=== PATIENT | male | born 1945 | race Hispanic/Latino ===

== ENCOUNTER 2017-12-15 13:35 | Inpatient (IN) | payer MEDICARE ==
[2017-12-15] VITALS: BP 68/41
[~2017-12-15] VITALS: Ht 182.9 cm; Wt 65.1 kg
[~2017-12-15 13:35] MED LIST: CARV6.25 PO; LEVO175T9 PO; LISI-613 PO; TRAM50TA4 PO; TYL3 PO
[2017-12-15 14:06] LABS: BASOPHILS % (AUTO) 0.1 % (0.0-5.0); EOSINOPHILS % (AUTO) 0.1 % (0.0-8.0); HEMATOCRIT 33.4 % (42-54); LYMPHOCYTES % (AUTO) 2.5 % (21.0-51.0); MEAN CORPUSCULAR HEMOGLOBIN 29.4 pg (27.0-33.0); MEAN CORPUSCULAR HGB CONC 33.3 g/dL (32.0-36.0); MEAN CORPUSCULAR VOLUME 88.2 fL (79-99); MONOCYTES % (AUTO) 2.8 % (3.0-13.0); NEUTROPHILS % (AUTO) 94.5 % (40.0-77.0); PLATELET COUNT (AUTO) 294 K/uL (130-400); RED BLOOD CELL COUNT(AUTO) 3.79 MIL/uL (4.50-6.20); RED CELL DISTRIBUTION WIDTH 16.9 % (11.0-15.5); WHITE BLOOD COUNT (AUTO) 16.4 K/uL (4.8-10.8)
[2017-12-15 14:15] LABS: INR 0.97 (0.85-1.15); PARTIAL THROMBOPLASTIN TIME 32.6 SEC (26.3-35.5); PROTHROMBIN TIME 10.2 SEC (9.6-11.6)
[2017-12-15 14:24] LABS: CREATININE 1.2 mg/dL (0.5-1.5); POTASSIUM 3.1 mmol/L (3.5-5.1)
[2017-12-15] MEDS ORDERED: SODIUM CHLORIDE 0.9% 1000ML 1,000 ML IV ONE (14:36)
[2017-12-15 14:39] LABS: ALBUMIN 1.8 g/dL (3.5-5.0); BILIRUBIN,TOTAL 1.6 mg/dL (0.2-1.0); CREATINE KINASE MB 3.2 ng/mL (0.5-3.6); TOTAL PROTEIN, SERUM 6.5 g/dL (6.0-8.3)
[2017-12-15] MEDS ORDERED: LEVOFLOXACIN 750 MG/D5W 150 ML 150 ML ONE (15:59)
[2017-12-15] MEDS ORDERED: VANCOMYCIN 1GM+NS 250ML 250 ML IV ONE (15:59)
[2017-12-15] MEDS ORDERED: TRAMADOL HCL 50 MG TABLET PO PRN (16:00)
[2017-12-15] MEDS ORDERED: SODIUM CHLORIDE 0.9% 500ML 1,000 ML IV ONE (16:42)
[2017-12-15 16:50] LABS: APPEARANCE,URINE Cloudy (CLEAR); BILIRUBIN,URINE Small (NEGATIVE); COLOR,URINE Orange (YELLOW); GLUCOSE, URINE (UA) Negative (NEGATIVE); KETONES,URINE Negative (NEGATIVE); LEUKOCYTE ESTERASE ,URINE Small (NEGATIVE); NITRATE,URINE Negative (NEGATIVE); OCCULT BLOOD,URINE Large (NEGATIVE); PROTEIN,URINE POS 1+ (NEGATIVE)
[2017-12-15 16:58] LABS: BACTERIA,URINE Rare /HPF (None Seen); RBC,URINE >100 /HPF (0-1)
[2017-12-15] MEDS ORDERED: NITROGLYCERIN 0.4 MG SL TAB SL PRN (18:30)
[2017-12-15] MEDS ORDERED: MAG HYDROX/AL HYDROX/SIMETH ES 30 ML SUSP UDCUP PO PRN (18:30)
[2017-12-15] MEDS ORDERED: HYDRALAZINE HCL 20 MG/ML VIAL IV PRN (18:30)
[2017-12-15] MEDS ORDERED: ACETAMINOPHEN-CODEINE 300/30MG TAB PO PRN (18:30)
[2017-12-15] MEDS ORDERED: ONDANSETRON HCL 4 MG/2 ML VIAL IV PRN (18:30)
[2017-12-15] MEDS ORDERED: ZOLPIDEM TARTRATE 5 MG TAB PO PRN (18:30)
[2017-12-15] MEDS ORDERED: LACTULOSE 20 GM/30 ML UDCUP PO PRN (18:30)
[2017-12-15] MEDS ORDERED: GUAIFENESIN-DM 200/20 MG 10 ML PO PRN (18:30)
[2017-12-15] MEDS ORDERED: ENOXAPARIN SODIUM 40 MG/0.4 ML SYRINGE SQ ONE (20:41)
[2017-12-15] MEDS ORDERED: MORPHINE SULFATE 8 MG/ML VIAL ONE (20:41)
[2017-12-15] MEDS ORDERED: FAMOTIDINE/PF 20 MG/2 ML VIAL IV ONE (20:42)
[2017-12-15] MEDS: BENZONATATE 100 MG CAPSULE PO SCH (21:00)
[2017-12-16] VITALS (8 sets, daily range): BP systolic 79–110; BP diastolic 36–68
[2017-12-16] MEDS ORDERED: RENAL DOSE IV PRN (00:15)
[2017-12-16] MEDS ORDERED: SODIUM CHLORIDE 0.9% 500ML 500 ML IV ONE (00:24)
[2017-12-16] MEDS ORDERED: SODIUM CHLORIDE 0.9% 1000ML 1,000 ML IV SCH (00:30)
[2017-12-16] MEDS ORDERED: SODIUM CHLORIDE 0.9% 500ML 500 ML IV SCH ×2 (00:30→00:40)
[2017-12-16] MEDS ORDERED: POTASSIUM CHLORIDE 20 MEQ ERTAB PO PRN (00:30)
[2017-12-16] MEDS: SODIUM CHLORIDE 0.9% 1000ML 1,000 ML IV SCH ×3 (00:55→22:03)
[2017-12-16 04:18] LABS: BILIRUBIN,URINE Small (NEGATIVE); COLOR,URINE Dark Yellow (YELLOW); GLUCOSE, URINE (UA) Negative (NEGATIVE); KETONES,URINE Negative (NEGATIVE); LEUKOCYTE ESTERASE ,URINE Trace (NEGATIVE); NITRATE,URINE Negative (NEGATIVE); OCCULT BLOOD,URINE Moderate (NEGATIVE); PH,URINE 5.5 (5.0-8.0); PROTEIN,URINE POS 1+ (NEGATIVE)
[2017-12-16 04:19] LABS: APPEARANCE,URINE HAZY (CLEAR)
[2017-12-16 04:27] LABS: HEMATOCRIT 28.3 % (42-54); LYMPHOCYTES % (AUTO) 3.8 % (21.0-51.0); MEAN CORPUSCULAR HEMOGLOBIN 30.9 pg (27.0-33.0); MEAN CORPUSCULAR HGB CONC 35.5 g/dL (32.0-36.0); MEAN CORPUSCULAR VOLUME 87.3 fL (79-99); MONOCYTES % (AUTO) 2.7 % (3.0-13.0); NEUTROPHILS % (AUTO) 93.5 % (40.0-77.0); NUCLEATED RED BLOOD CELLS 0.1 % (0.0-0.19); PLATELET COUNT (AUTO) 269 K/uL (130-400); RED BLOOD CELL COUNT(AUTO) 3.24 MIL/uL (4.50-6.20); RED CELL DISTRIBUTION WIDTH 16.8 % (11.0-15.5)
[2017-12-16 04:45] LABS: BACTERIA,URINE Few /HPF (None Seen)
[2017-12-16 04:54] LABS: ALBUMIN 1.4 g/dL (3.5-5.0); BILIRUBIN,TOTAL 1.4 mg/dL (0.2-1.0); CREATININE 1.1 mg/dL (0.5-1.5); TOTAL PROTEIN, SERUM 5.6 g/dL (6.0-8.3)
[2017-12-16] MEDS: LEVOTHYROXINE 88 MCG TABLET PO SCH (04:58)
[2017-12-16] MEDS: VANCOMYCIN 1GM+NS 250ML 250 ML IV SCH ×2 (05:04→17:43)
[2017-12-16] MEDS: MORPHINE SULFATE 2 MG/ML 1ML SYG IV PRN (05:06)
[2017-12-16 05:20] LABS: POTASSIUM 2.3 mmol/L (3.5-5.1)
[2017-12-16] MEDS: LIDOCAINE HCL-MPF 1% 2ML VIAL IVP PRN ×4 (05:28→22:04)
[2017-12-16] MEDS: POTASSIUM CHLORIDE 20MEQ/100ML 100 ML IV PRN ×4 (05:29→22:04)
[2017-12-16] MEDS: FAMOTIDINE/PF 20 MG/2 ML VIAL IV SCH (08:41)
[2017-12-16] MEDS: ENOXAPARIN SODIUM 60 MG/0.6 ML SQ SCH ×2 (08:42→22:05)
[2017-12-16] MEDS: BENZONATATE 100 MG CAPSULE PO SCH ×3 (08:42→21:00)
[2017-12-16] MEDS ORDERED: LISINOPRIL 20 MG TABLET PO SCH (09:00)
[2017-12-16] MEDS ORDERED: ENOXAPARIN SODIUM 40 MG/0.4 ML SYRINGE SQ SCH (09:00)
[2017-12-16] MEDS ORDERED: CARVEDILOL 6.25 MG TABLET PO SCH (09:00)
[2017-12-16] MEDS ORDERED: VANCOMYCIN HCL 1 GM VIAL IV SCH (16:00)
[2017-12-16] MEDS: LEVOFLOXACIN 500 MG/D5W 100 ML 100 ML IV SCH (22:03)
[2017-12-16] MEDS: ASCORBIC ACID 500 MG TAB PO SCH (22:04)
[2017-12-16] MEDS: POTASSIUM CHLORIDE 10% ELIXIR 20 MEQ/15 ML UDCUP PO PRN (22:06)
[2017-12-17] MEDS ORDERED: MORPHINE SULFATE 8 MG/ML VIAL ONE (00:29)
[2017-12-17 03:48] LABS: BASOPHILS % (AUTO) 0.1 % (0.0-5.0); HEMATOCRIT 29.3 % (42-54); LYMPHOCYTES % (AUTO) 3.5 % (21.0-51.0); MEAN CORPUSCULAR HEMOGLOBIN 29.5 pg (27.0-33.0); MEAN CORPUSCULAR HGB CONC 33.6 g/dL (32.0-36.0); MEAN CORPUSCULAR VOLUME 87.8 fL (79-99); MONOCYTES % (AUTO) 2.8 % (3.0-13.0); NEUTROPHILS % (AUTO) 93.6 % (40.0-77.0); NUCLEATED RED BLOOD CELLS 0.1 % (0.0-0.19); PLATELET COUNT (AUTO) 289 K/uL (130-400); RED BLOOD CELL COUNT(AUTO) 3.34 MIL/uL (4.50-6.20); RED CELL DISTRIBUTION WIDTH 17.6 % (11.0-15.5); WHITE BLOOD COUNT (AUTO) 10.8 K/uL (4.8-10.8)
[2017-12-17 03:58] VITALS: BP 103/57
[2017-12-17 04:14] LABS: MAGNESIUM 2.1 mg/dL (1.80-2.40)
[2017-12-17 04:29] LABS: POTASSIUM 2.8 mmol/L (3.5-5.1)
[2017-12-17] MEDS: LEVOTHYROXINE 88 MCG TABLET PO SCH (05:05)
[2017-12-17] MEDS: POTASSIUM CHLORIDE 20MEQ/100ML 100 ML IV PRN ×2 (05:07→15:08)
[2017-12-17] MEDS: LIDOCAINE HCL-MPF 1% 2ML VIAL IVP PRN ×2 (05:08→15:08)
[2017-12-17] MEDS: VANCOMYCIN 1GM+NS 250ML 250 ML IV SCH ×2 (05:08→16:02)
[2017-12-17] MEDS: POTASSIUM CHLORIDE 10% ELIXIR 20 MEQ/15 ML UDCUP PO PRN ×2 (05:08→15:09)
[2017-12-17] MEDS: SODIUM CHLORIDE 0.9% 1000ML 1,000 ML IV SCH ×2 (06:20→16:15)
[2017-12-17 08:00] VITALS: BP 101/57
[2017-12-17] MEDS: MULTIVITAMIN WITH MINERALS TABLET PO SCH (08:09)
[2017-12-17] MEDS: ACETAMINOPHEN-CODEINE 300/30MG TAB PO PRN (08:10)
[2017-12-17] MEDS: ASCORBIC ACID 500 MG TAB PO SCH ×2 (08:10→21:41)
[2017-12-17] MEDS: FAMOTIDINE/PF 20 MG/2 ML VIAL IV SCH (08:10)
[2017-12-17] MEDS: ENOXAPARIN SODIUM 60 MG/0.6 ML SQ SCH ×2 (08:11→21:41)
[2017-12-17] MEDS: ZINC SULFATE 220 CAPSULE PO SCH (08:12)
[2017-12-17] MEDS: BENZONATATE 100 MG CAPSULE PO SCH ×3 (08:13→20:07)
[2017-12-17 11:52] VITALS: BP 100/54
[2017-12-17 16:00] VITALS: BP 106/65
[2017-12-17] MEDS: MORPHINE SULFATE 2 MG/ML 1ML SYG IV PRN (16:03)
[2017-12-17] MEDS: LEVOFLOXACIN 500 MG/D5W 100 ML 100 ML IV SCH (18:30)
[2017-12-17 19:00] VITALS: BP 107/69
[2017-12-18] VITALS: BP 112/55
[2017-12-18] MEDS: MORPHINE SULFATE 2 MG/ML 1ML SYG IV PRN (02:30)
[2017-12-18 04:00] VITALS: BP 124/65
[2017-12-18] MEDS: SODIUM CHLORIDE 0.9% 1000ML 1,000 ML IV SCH ×3 (04:27→21:04)
[2017-12-18] MEDS: VANCOMYCIN 1GM+NS 250ML 250 ML IV SCH ×2 (05:07→17:01)
[2017-12-18] MEDS: LEVOTHYROXINE 88 MCG TABLET PO SCH (05:47)
[2017-12-18 08:32] VITALS: BP 102/53
[2017-12-18] MEDS: MULTIVITAMIN WITH MINERALS TABLET PO SCH (09:12)
[2017-12-18] MEDS: ZINC SULFATE 220 CAPSULE PO SCH (09:12)
[2017-12-18] MEDS: ASCORBIC ACID 500 MG TAB PO SCH ×2 (09:12→21:04)
[2017-12-18] MEDS: FAMOTIDINE/PF 20 MG/2 ML VIAL IV SCH (09:12)
[2017-12-18] MEDS: ENOXAPARIN SODIUM 60 MG/0.6 ML SQ SCH ×2 (09:14→21:05)
[2017-12-18] MEDS: BENZONATATE 100 MG CAPSULE PO SCH ×2 (09:14→15:26)
[2017-12-18 11:42] VITALS: BP 137/62
[2017-12-18 16:00] VITALS: BP 139/85
[2017-12-18] MEDS: LEVOFLOXACIN 500 MG/D5W 100 ML 100 ML IV SCH (17:01)
[2017-12-18] MEDS ORDERED: GUAIFENESIN-DM 200/20 MG 10 ML NG PRN (17:30)
[2017-12-18 19:00] VITALS: BP 128/68
[2017-12-19] VITALS: BP 119/67
[2017-12-19] MEDS ORDERED: MORPHINE SULFATE 4 MG/1ML SYG ONE (03:17)
[2017-12-19 04:00] VITALS: BP 119/65
[2017-12-19 04:57] LABS: BASOPHILS % (AUTO) 0.1 % (0.0-5.0); EOSINOPHILS % (AUTO) 0.2 % (0.0-8.0); HEMATOCRIT 27.8 % (42-54); LYMPHOCYTES % (AUTO) 9.1 % (21.0-51.0); MEAN CORPUSCULAR HEMOGLOBIN 29.5 pg (27.0-33.0); MEAN CORPUSCULAR HGB CONC 33.3 g/dL (32.0-36.0); MEAN CORPUSCULAR VOLUME 88.5 fL (79-99); NEUTROPHILS % (AUTO) 86.6 % (40.0-77.0); NUCLEATED RED BLOOD CELLS 0.1 % (0.0-0.19); PLATELET COUNT (AUTO) 256 K/uL (130-400); RED BLOOD CELL COUNT(AUTO) 3.14 MIL/uL (4.50-6.20); RED CELL DISTRIBUTION WIDTH 17.7 % (11.0-15.5); WHITE BLOOD COUNT (AUTO) 12.1 K/uL (4.8-10.8)
[2017-12-19 05:20] LABS: CREATININE 0.8 mg/dL (0.5-1.5); MAGNESIUM 1.8 mg/dL (1.80-2.40); POTASSIUM 3.1 mmol/L (3.5-5.1)
[2017-12-19] MEDS: VANCOMYCIN 1GM+NS 250ML 250 ML IV SCH ×2 (05:51→18:33)
[2017-12-19] MEDS: LEVOTHYROXINE 88 MCG TABLET PO SCH (06:30)
[2017-12-19 07:45] VITALS: BP 126/73
[2017-12-19 11:14] VITALS: BP 137/70
[2017-12-19 16:04] VITALS: BP 123/72
[2017-12-19] MEDS: FAMOTIDINE/PF 20 MG/2 ML VIAL IV SCH (18:32)
[2017-12-19] MEDS: POTASSIUM CHLORIDE 10% ELIXIR 20 MEQ/15 ML UDCUP PO PRN (18:33)
[2017-12-19] MEDS: MULTIVITAMIN WITH MINERALS TABLET PO SCH (18:33)
[2017-12-19] MEDS: LEVOFLOXACIN 500 MG/D5W 100 ML 100 ML IV SCH (18:33)
[2017-12-19] MEDS: ASCORBIC ACID 500 MG TAB PO SCH ×2 (18:34→20:33)
[2017-12-19] MEDS: ZINC SULFATE 220 CAPSULE PO SCH (18:34)
[2017-12-19] MEDS: ENOXAPARIN SODIUM 60 MG/0.6 ML SQ SCH ×2 (18:35→20:34)
[2017-12-19 20:00] VITALS: BP 121/63
[2017-12-19] MEDS: METRONIDAZOLE 500MG/100ML BAG 100 ML IV SCH (23:16)
[2017-12-20] VITALS (8 sets, daily range): BP systolic 92–143; BP diastolic 53–77
[2017-12-20 04:58] LABS: BASOPHILS % (AUTO) 0.1 % (0.0-5.0); EOSINOPHILS % (AUTO) 0.2 % (0.0-8.0); HEMATOCRIT 29.7 % (42-54); LYMPHOCYTES % (AUTO) 11.9 % (21.0-51.0); MEAN CORPUSCULAR HGB CONC 33.9 g/dL (32.0-36.0); MEAN CORPUSCULAR VOLUME 88.5 fL (79-99); MONOCYTES % (AUTO) 4.1 % (3.0-13.0); NEUTROPHILS % (AUTO) 83.7 % (40.0-77.0); NUCLEATED RED BLOOD CELLS 0.1 % (0.0-0.19); PLATELET COUNT (AUTO) 253 K/uL (130-400); RED BLOOD CELL COUNT(AUTO) 3.36 MIL/uL (4.50-6.20); RED CELL DISTRIBUTION WIDTH 17.3 % (11.0-15.5); WHITE BLOOD COUNT (AUTO) 14.8 K/uL (4.8-10.8)
[2017-12-20 05:05] LABS: CREATININE 0.8 mg/dL (0.5-1.5)
[2017-12-20 05:15] LABS: POTASSIUM 2.8 mmol/L (3.5-5.1)
[2017-12-20] MEDS: METRONIDAZOLE 500MG/100ML BAG 100 ML IV SCH ×3 (05:30→22:25)
[2017-12-20] MEDS: LIDOCAINE HCL-MPF 1% 2ML VIAL IVP PRN (05:31)
[2017-12-20] MEDS: POTASSIUM CHLORIDE 20MEQ/100ML 100 ML IV PRN (05:32)
[2017-12-20] MEDS: VANCOMYCIN 1GM+NS 250ML 250 ML IV SCH ×2 (05:33→17:09)
[2017-12-20] MEDS: POTASSIUM CHLORIDE 10% ELIXIR 20 MEQ/15 ML UDCUP PO PRN ×4 (05:34→19:39)
[2017-12-20] MEDS: LEVOTHYROXINE 88 MCG TABLET PO SCH (05:50)
[2017-12-20] MEDS: FAMOTIDINE/PF 20 MG/2 ML VIAL IV SCH (13:06)
[2017-12-20] MEDS: ASCORBIC ACID 500 MG TAB PO SCH ×2 (13:06→22:26)
[2017-12-20] MEDS: MULTIVITAMIN WITH MINERALS TABLET PO SCH (13:06)
[2017-12-20] MEDS: ZINC SULFATE 220 CAPSULE PO SCH (13:06)
[2017-12-20] MEDS: ENOXAPARIN SODIUM 60 MG/0.6 ML SQ SCH ×2 (13:08→22:26)
[2017-12-20] MEDS: ACETAMINOPHEN 325 MG TAB PO PRN (17:18)
[2017-12-20] MEDS ORDERED: POTASSIUM CHLORIDE 10% ELIXIR 20 MEQ/15 ML UDCUP PO ONE (19:36)
[2017-12-20] MEDS: LEVOFLOXACIN 500 MG/D5W 100 ML 100 ML IV SCH (19:39)
[2017-12-20] MEDS: DEXTROSE 5%-WATER 1,000 ML IV SCH (22:25)
[2017-12-21] MEDS ORDERED: MORPHINE SULFATE 4 MG/1ML SYG ONE (01:19)
[2017-12-21] MEDS: ACETAMINOPHEN 325 MG TAB PO PRN (04:05)
[2017-12-21 04:10] VITALS: BP 106/58
[2017-12-21] MEDS: METRONIDAZOLE 500MG/100ML BAG 100 ML IV SCH ×3 (05:03→22:05)
[2017-12-21] MEDS: VANCOMYCIN 1GM+NS 250ML 250 ML IV SCH ×2 (05:03→17:25)
[2017-12-21] MEDS: LEVOTHYROXINE 88 MCG TABLET PO SCH (06:22)
[2017-12-21 07:51] VITALS: BP 106/63
[2017-12-21 11:32] VITALS: BP 97/56
[2017-12-21] MEDS: FAMOTIDINE/PF 20 MG/2 ML VIAL IV SCH (13:17)
[2017-12-21] MEDS: ZINC SULFATE 220 CAPSULE PO SCH (13:17)
[2017-12-21] MEDS: MULTIVITAMIN WITH MINERALS TABLET PO SCH (13:17)
[2017-12-21] MEDS: DEXTROSE 5%-WATER 1,000 ML IV SCH (13:17)
[2017-12-21] MEDS: ASCORBIC ACID 500 MG TAB PO SCH ×2 (13:17→22:03)
[2017-12-21] MEDS: ENOXAPARIN SODIUM 60 MG/0.6 ML SQ SCH ×2 (13:20→22:04)
[2017-12-21 16:00] VITALS: BP 97/54
[2017-12-21] MEDS: LEVOFLOXACIN 500 MG/D5W 100 ML 100 ML IV SCH (17:25)
[2017-12-21 19:25] VITALS: BP 103/53
[2017-12-21 23:42] VITALS: BP 93/57
[2017-12-22] MEDS: ACETAMINOPHEN-CODEINE 300/30MG TAB PO PRN ×2 (01:37→17:38)
[2017-12-22 04:24] VITALS: BP 102/53
[2017-12-22] MEDS: VANCOMYCIN 1GM+NS 250ML 250 ML IV SCH ×2 (04:55→17:39)
[2017-12-22] MEDS: DEXTROSE 5%-WATER 1,000 ML IV SCH (05:05)
[2017-12-22] MEDS: METRONIDAZOLE 500MG/100ML BAG 100 ML IV SCH ×3 (06:01→23:56)
[2017-12-22] MEDS: LEVOTHYROXINE 88 MCG TABLET PO SCH (06:30)
[2017-12-22 08:20] VITALS: BP 103/52
[2017-12-22] MEDS: ENOXAPARIN SODIUM 60 MG/0.6 ML SQ SCH ×2 (09:00→23:58)
[2017-12-22] MEDS: MULTIVITAMIN WITH MINERALS TABLET PO SCH (09:00)
[2017-12-22 11:00] VITALS: BP 103/57
[2017-12-22] MEDS ORDERED: MORPHINE SULFATE 4 MG/1ML SYG IV PRN (15:30)
[2017-12-22] MEDS: ZINC SULFATE 220 CAPSULE PO SCH (17:35)
[2017-12-22] MEDS: LEVOFLOXACIN 500 MG/D5W 100 ML 100 ML IV SCH (17:38)
[2017-12-22] MEDS: ASCORBIC ACID 500 MG TAB PO SCH ×2 (17:40→23:56)
[2017-12-22] MEDS: FAMOTIDINE/PF 20 MG/2 ML VIAL IV SCH (17:40)
[2017-12-22 19:00] VITALS: BP 103/66
[2017-12-23] VITALS: BP 98/54
[2017-12-23 03:51] LABS: BASOPHILS % (AUTO) 0.1 % (0.0-5.0); EOSINOPHILS % (AUTO) 0.5 % (0.0-8.0); HEMATOCRIT 24.9 % (42-54); LYMPHOCYTES % (AUTO) 10.3 % (21.0-51.0); MEAN CORPUSCULAR HGB CONC 34.4 g/dL (32.0-36.0); MONOCYTES % (AUTO) 4.2 % (3.0-13.0); NEUTROPHILS % (AUTO) 84.9 % (40.0-77.0); NUCLEATED RED BLOOD CELLS 0.2 % (0.0-0.19); PLATELET COUNT (AUTO) 203 K/uL (130-400); RED BLOOD CELL COUNT(AUTO) 2.76 MIL/uL (4.50-6.20); RED CELL DISTRIBUTION WIDTH 17.9 % (11.0-15.5)
[2017-12-23 04:00] VITALS: BP 91/57
[2017-12-23 04:00] LABS: CREATININE 0.9 mg/dL (0.5-1.5); MAGNESIUM 2.1 mg/dL (1.80-2.40)
[2017-12-23 04:10] LABS: POTASSIUM 2.9 mmol/L (3.5-5.1)
[2017-12-23] MEDS: METRONIDAZOLE 500MG/100ML BAG 100 ML IV SCH ×3 (05:16→21:58)
[2017-12-23] MEDS: VANCOMYCIN 1GM+NS 250ML 250 ML IV SCH ×2 (05:16→18:23)
[2017-12-23] MEDS: POTASSIUM CHLORIDE 10% ELIXIR 20 MEQ/15 ML UDCUP PO PRN ×2 (05:20→10:17)
[2017-12-23] MEDS: LEVOTHYROXINE 88 MCG TABLET PO SCH (05:20)
[2017-12-23 08:00] VITALS: BP 99/60
[2017-12-23] MEDS: FAMOTIDINE/PF 20 MG/2 ML VIAL IV SCH (10:08)
[2017-12-23] MEDS: ZINC SULFATE 220 CAPSULE PO SCH (10:09)
[2017-12-23] MEDS: ASCORBIC ACID 500 MG TAB PO SCH ×2 (10:09→21:59)
[2017-12-23] MEDS: ENOXAPARIN SODIUM 60 MG/0.6 ML SQ SCH ×2 (10:09→21:59)
[2017-12-23] MEDS: MULTIVITAMIN WITH MINERALS TABLET PO SCH (10:10)
[2017-12-23 11:00] VITALS: BP 101/59
[2017-12-23 16:42] VITALS: BP 96/43
[2017-12-23 19:53] VITALS: BP 91/53
[2017-12-23] MEDS: LEVOFLOXACIN 500 MG/D5W 100 ML 100 ML IV SCH (21:58)
[2017-12-24] VITALS (17 sets, daily range): BP systolic 85–162; BP diastolic 49–98
[2017-12-24] MEDS: LEVOTHYROXINE 88 MCG TABLET PO SCH (05:26)
[2017-12-24] MEDS: VANCOMYCIN 1GM+NS 250ML 250 ML IV SCH (05:26)
[2017-12-24] MEDS: METRONIDAZOLE 500MG/100ML BAG 100 ML IV SCH ×2 (05:27→17:10)
[2017-12-24] MEDS: MULTIVITAMIN WITH MINERALS TABLET PO SCH (08:15)
[2017-12-24] MEDS: ASCORBIC ACID 500 MG TAB PO SCH (08:15)
[2017-12-24] MEDS: ZINC SULFATE 220 CAPSULE PO SCH (08:15)
[2017-12-24] MEDS: ENOXAPARIN SODIUM 60 MG/0.6 ML SQ SCH (08:16)
[2017-12-24] MEDS ORDERED: DEXTROSE 5%-WATER 1,000 ML IV SCH (09:00)
[2017-12-24] MEDS: FAMOTIDINE/PF 20 MG/2 ML VIAL IV SCH (09:32)
[2017-12-24] MEDS: LIDOCAINE HCL-MPF 1% 2ML VIAL IVP PRN (09:32)
[2017-12-24] MEDS: POTASSIUM CHLORIDE 20MEQ/100ML 100 ML IV PRN (09:32)
[2017-12-24 09:48] LABS: CREATININE 0.8 mg/dL (0.5-1.5); POTASSIUM 3.1 mmol/L (3.5-5.1)
[2017-12-24] MEDS ORDERED: PROPOFOL 10 MG/ML 20ML VIAL IV ONE (12:23)
== END 2017-12-24 20:50 | DRG 871 ==
LOC: EDH 13:35 → EDHIP 18:21 → 3AH 21:33
PROVIDERS: ADMIT Family Medicine; ATTEND Family Medicine
PROC: 0H96XZZ Drainage of Back Skin, External Approach (ICD-10-PCS; 2017-12-17)
PROC: 0DH63UZ Insertion of Feeding Device into Stomach, Percutaneous Approach (ICD-10-PCS; principal; 2017-12-24)
DX: A41.9 Sepsis, unspecified organism (principal); E43 Unspecified severe protein-calorie malnutrition; L89.152 Pressure ulcer of sacral region, stage 2; I82.412 Acute embolism and thrombosis of left femoral vein; M62.82 Rhabdomyolysis; R13.12 Dysphagia, oropharyngeal phase; E87.1 Hypo-osmolality and hyponatremia; R47.01 Aphasia; D64.9 Anemia, unspecified; N39.0 Urinary tract infection, site not specified; I82.432 Acute embolism and thrombosis of left popliteal vein; Z68.1 Body mass index [BMI] 19.9 or less, adult; R65.20 Severe sepsis without septic shock; F03.90 Unspecified dementia, unspecified severity, without behavioral disturbance, psychotic disturbance, mood disturbance, and anxiety; E03.9 Hypothyroidism, unspecified; I10 Essential (primary) hypertension; E78.5 Hyperlipidemia, unspecified; E87.6 Hypokalemia; Z74.01 Bed confinement status
CPT/HCPCS: 10060; 36415; 71045; 73590; 80048; 80053; 80076; 80202; 81001; 82550; 82553; 83605; 83735; 83874; 84132; 84484; 85025; 85610; 85730; 87040; 87070; 87076; 87088; 92610; 93005; 93970; 99291; J1650; J1956; J2270; J2704; J3370; J3480; J3490; J7030; J7040; J7070